=== PATIENT | male | born 1960 | race Caucasian/White ===

== ENCOUNTER 2021-06-20 17:56 | Inpatient (IN) ==
[2021-06-20 19:46] LABS: Basophils # 0.1 K/mcL (0.0-0.2); Basophils % 1.2 %; Eosinophils # 0.5 K/mcL (0.0-0.6); Eosinophils % 4.7 %; Hematocrit 44.4 % (37.5-50.1); Immature Granulocytes % 0.2 % (0-4); Lymphocytes # 3.6 K/mcL (0.6-4.6); Lymphocytes % 34.6 %; Mean Corpuscular HGB Conc 33.8 g/dL (31.6-35.5); Mean Corpuscular Hemoglobin 31.9 pg (28.0-33.3); Mean Corpuscular Volume 94.5 fL (83.0-100.0); Mean Platelet Volume 10.7 fL (9.4-12.4); Monocytes # 0.9 K/mcL (0.0-1.3); Monocytes % 8.7 %; Neutrophils # 5.2 K/mcL (1.6-8.9); Platelet Count 310 K/mcL (140-400); Red Cell Distribution Width 14.7 % (11.5-14.5); Segmented Neutrophils % 50.6 %; White Blood Count 10.4 K/mcL (4.3-11.1)
[2021-06-20 20:05] LABS: Bilirubin,Urine Negative (Negative); Blood,Urine Negative (Negative); Clarity,Urine Clear (Clear); Color,Urine Light-Yellow (Yellow); Glucose,Urine (UA) Normal (Normal); Ketones,Urine Negative (Negative); Leukocyte Esterase,Urine Negative (Negative); Nitrite,Urine Negative (Negative); Protein,Urine Trace mg/dL (Neg-Trace); Specific Gravity,Urine 1.015 (1.010-1.025); Urobilinogen,Urine Normal (Normal)
[2021-06-20] MEDS ORDERED: amLODIPine 5 MG TABLET PO STA (20:09)
[2021-06-20 20:10] LABS: Amphetamine Screen,Urine Negative ng/mL (Cutoff=1000); Barbiturate Screen,Urine Negative ng/mL (Cutoff=200); Benzodiazepines Screen,Urine Negative ng/mL (Cutoff=200); Cannabinoid Screen,Urine Negative ng/mL (Cutoff = 50); Cocaine Screen,Urine Negative ng/mL (Cutoff= 300); Opiate Screen,Urine Negative ng/mL (Cutoff=300); Phencyclidine Screen,Urine Negative ng/mL (Cutoff=25)
[2021-06-20] MEDS ORDERED: hydrALAZINE 25 MG TABLET PO ONE (20:10)
[2021-06-20 20:11] LABS: Alanine Aminotransferase 7 Units/L (7-52); Albumin 3.7 g/dL (3.5-5.7); Albumin/Globulin Ratio 1.2 (1.1-2.2); Alkaline Phosphatase 89 Units/L (34-104); Aspartate Amino Transferase 11 Units/L (13-39); BUN/Creatinine Ratio 15 (6-26); Bilirubin,Direct 0.1 mg/dL (0.0-0.2); Bilirubin,Indirect 0.4 mg/dL (0.0-1.0); Bilirubin,Total 0.5 mg/dL (0.3-1.0); Blood Urea Nitrogen 13 mg/dL (8-23); Calcium 9.5 mg/dL (8.6-10.3); Carbon Dioxide 25 mEq/L (23-29); Chloride 107 mEq/L (98-107); Globulin 3.1 g/dL (2.4-3.5); Glucose 90 mg/dL (70-105); Osmolality,Calculated 290 (280-300); Potassium 3.4 mEq/L (3.5-5.1); Sodium 140 mEq/L (136-145); Total Protein 6.8 g/dL (6.4-8.9); eGFR For African Americans > 60 (> 60); eGFR For Non-African Americans > 60 (> 60)
[2021-06-20 20:12] LABS: Acetaminophen < 10 mcg/mL (10-20); Ethanol < 10 mg/dL (Less than 10); Salicylate < 2.5 mg/dL (15.0-30.0)
[2021-06-20 22:00] LABS: Influenza A PCR Negative (Negative); Influenza B PCR Negative (Negative); Resp. Syncytial Virus PCR Negative (Negative); SARS-CoV-2 by PCR (In House) Negative (Negative)
[2021-06-20] MEDS ORDERED: *HR* Labetalol 20 MG/4 ML SYRINGE IVP ONE (23:20)
[2021-06-21] MEDS ORDERED: Acetaminophen 325 MG TABLET PO PRN (00:37)
[2021-06-21] MEDS ORDERED: Melatonin 3 MG TABLET PO PRN (00:37)
[2021-06-21] MEDS ORDERED: *HR* HYDROcodone/Acet 5/325 mg TABLET PO PRN (00:37)
[2021-06-21] MEDS ORDERED: Naloxone 0.4 MG/ML INJ IVP PRN (00:37)
[2021-06-21] MEDS ORDERED: *HR* Promethazine 25 MG/ML VIAL IM PRN (00:37)
[2021-06-21] MEDS ORDERED: Perflutren Lipid Microsphere 1.3 ML in 0.9 % Sodium Chloride 8.7 ML IVP PRN (00:38)
[2021-06-21] MEDS ORDERED: *HR* LORazepam 0.5 MG TABLET PO ONE (01:19)
[2021-06-21] MEDS: *HR* Enoxaparin 40 MG/0.4 ML SYRINGE SQ SCH (05:13)
[2021-06-21 06:03] LABS: Hematocrit 49.4 % (37.5-50.1); Mean Corpuscular HGB Conc 33.6 g/dL (31.6-35.5); Mean Corpuscular Volume 95.4 fL (83.0-100.0); Mean Platelet Volume 10.3 fL (9.4-12.4); Platelet Count 340 K/mcL (140-400); Red Blood Count 5.18 M/mcL (4.19-5.50); Red Cell Distribution Width 14.7 % (11.5-14.5); White Blood Count 9.8 K/mcL (4.3-11.1)
[2021-06-21 06:06] LABS: Hemoglobin 16.6 g/dL (12.9-16.9)
[2021-06-21 06:12] LABS: Prothrombin Time 11.4 Seconds (9.4-12.1)
[2021-06-21 06:30] LABS: VBG HCO3 24 mEq/L (21-27); VBG PCO2 33 mmHg (41-51); VBG PH 7.47 pH Units (7.32-7.42); VBG PO2 112 mmHg (25-50)
[2021-06-21] MEDS: Metoprolol XL (24 HR) Succ 25 MG TAB.ER.24H PO SCH (08:29)
[2021-06-21] MEDS: Aspirin 81 MG TAB.CHEW PO SCH (08:29)
[2021-06-21] MEDS: NIFEdipine XL (24 HR) 60 MG TAB.ER.24 PO SCH (08:29)
[2021-06-21] MEDS: Nicotine 21 MG PATCH.TD24 TD SCH (08:30)
[2021-06-21] MEDS: lisinopriL 10 MG TABLET PO SCH (08:30)
[2021-06-21 08:39] LABS: BUN/Creatinine Ratio 13 (6-26); Blood Urea Nitrogen 12 mg/dL (8-23); Carbon Dioxide 23 mEq/L (23-29); Chloride 107 mEq/L (98-107); Chol/HDL Ratio 3.7 (0-4.9); Cholesterol 196 mg/dL (< 200); Glucose 102 mg/dL (70-105); HDL Cholesterol 53 mg/dL (40-59); LDL Cholesterol,Calculated 124 mg/dL (< 100); Magnesium 1.9 mg/dL (1.6-2.6); Osmolality,Calculated 290 (280-300); Phosphorous 2.9 mg/dL (2.7-4.5); Sodium 140 mEq/L (136-145); Triglycerides 94 mg/dL (< 150); eGFR For African Americans > 60 (> 60); eGFR For Non-African Americans > 60 (> 60)
[2021-06-21 08:42] LABS: Thyroid Stimulating Hormone 3.431 mcIU/mL (0.340-5.600)
[2021-06-21 09:49] LABS: Estimated Average Glucose 114 mg/dl; Hemoglobin A1C 5.6 %
[2021-06-21 11:10] LABS: Folate 5.4 ng/mL (3.0-16.0)
[2021-06-21] MEDS ORDERED: Isovue-370 500 ML BOTTLE IVP ONE ×2 (14:45)
[2021-06-21] MEDS: OLANZapine 5 MG TAB.RAPDIS PO SCH (20:49)
[2021-06-22] MEDS: *HR* Enoxaparin 40 MG/0.4 ML SYRINGE SQ SCH (05:01)
[2021-06-22] MEDS ORDERED: Haloperidol Lactate 5 MG/ML VIAL IVP ONE (09:00)
[2021-06-22] MEDS: Aspirin 81 MG TAB.CHEW PO SCH (09:12)
[2021-06-22] MEDS: Cyanocobalamin (B-12) 1,000 MCG TABLET PO SCH (09:12)
[2021-06-22] MEDS: lisinopriL 10 MG TABLET PO SCH (09:12)
[2021-06-22] MEDS: Nicotine 21 MG PATCH.TD24 TD SCH (09:12)
[2021-06-22] MEDS: NIFEdipine XL (24 HR) 60 MG TAB.ER.24 PO SCH (09:12)
[2021-06-22] MEDS: Metoprolol XL (24 HR) Succ 25 MG TAB.ER.24H PO SCH (09:12)
[2021-06-22] MEDS: OLANZapine 5 MG TAB.RAPDIS PO SCH (23:21)
[2021-06-23] MEDS: *HR* Enoxaparin 40 MG/0.4 ML SYRINGE SQ SCH (06:54)
[2021-06-23] MEDS: Aspirin 81 MG TAB.CHEW PO SCH (09:50)
[2021-06-23] MEDS: NIFEdipine XL (24 HR) 60 MG TAB.ER.24 PO SCH (09:50)
[2021-06-23] MEDS: Nicotine 21 MG PATCH.TD24 TD SCH (09:50)
[2021-06-23] MEDS: Cyanocobalamin (B-12) 1,000 MCG TABLET PO SCH (09:50)
[2021-06-23] MEDS: Metoprolol XL (24 HR) Succ 25 MG TAB.ER.24H PO SCH (09:50)
[2021-06-23] MEDS: lisinopriL 10 MG TABLET PO SCH (09:50)
[2021-06-23] MEDS: OLANZapine 5 MG TAB.RAPDIS PO SCH (20:54)
[2021-06-24] MEDS: *HR* Enoxaparin 40 MG/0.4 ML SYRINGE SQ SCH (06:28)
[2021-06-24] MEDS: Nicotine 21 MG PATCH.TD24 TD SCH (09:06)
[2021-06-24] MEDS: lisinopriL 10 MG TABLET PO SCH (09:06)
[2021-06-24] MEDS: Cyanocobalamin (B-12) 1,000 MCG TABLET PO SCH (09:06)
[2021-06-24] MEDS: Aspirin 81 MG TAB.CHEW PO SCH (09:06)
[2021-06-24] MEDS: Metoprolol XL (24 HR) Succ 25 MG TAB.ER.24H PO SCH (09:06)
[2021-06-24] MEDS: NIFEdipine XL (24 HR) 60 MG TAB.ER.24 PO SCH (09:07)
[2021-06-24] MEDS: OLANZapine 5 MG TAB.RAPDIS PO SCH (21:50)
[2021-06-25] MEDS: *HR* Enoxaparin 40 MG/0.4 ML SYRINGE SQ SCH (07:10)
[2021-06-25] MEDS: Nicotine 21 MG PATCH.TD24 TD SCH (09:34)
[2021-06-25] MEDS: Cyanocobalamin (B-12) 1,000 MCG TABLET PO SCH (09:34)
[2021-06-25] MEDS: Aspirin 81 MG TAB.CHEW PO SCH (09:34)
[2021-06-25] MEDS: Metoprolol XL (24 HR) Succ 25 MG TAB.ER.24H PO SCH (09:35)
[2021-06-25] MEDS: NIFEdipine XL (24 HR) 60 MG TAB.ER.24 PO SCH (09:35)
[2021-06-25] MEDS: lisinopriL 10 MG TABLET PO SCH (09:35)
[2021-06-25] MEDS: OLANZapine 5 MG TAB.RAPDIS PO SCH (19:46)
[2021-06-26] MEDS: *HR* Enoxaparin 40 MG/0.4 ML SYRINGE SQ SCH (05:54)
[2021-06-26] MEDS: Cyanocobalamin (B-12) 1,000 MCG TABLET PO SCH (10:20)
[2021-06-26] MEDS: Metoprolol XL (24 HR) Succ 25 MG TAB.ER.24H PO SCH (10:20)
[2021-06-26] MEDS: lisinopriL 10 MG TABLET PO SCH (10:20)
[2021-06-26] MEDS: NIFEdipine XL (24 HR) 60 MG TAB.ER.24 PO SCH (10:20)
[2021-06-26] MEDS: Aspirin 81 MG TAB.CHEW PO SCH (10:20)
[2021-06-26] MEDS: Nicotine 21 MG PATCH.TD24 TD SCH (10:21)
[2021-06-26] MEDS ORDERED: *HR* Heparin 5,000 UNIT/ML VIAL IVP ONE (11:11)
[2021-06-26] MEDS ORDERED: *HR* Heparin 5,000 UNIT/ML VIAL IVP PRN (11:11)
[2021-06-26] MEDS ORDERED: *HR* Etomidate 40 MG/20 ML VIAL IVP ONE (11:58)
[2021-06-26] MEDS ORDERED: Lidocaine -MPF 2% 5 ML VIAL ONE (11:58)
[2021-06-26] MEDS ORDERED: Ondansetron 4 MG/2 ML VIAL ONE (11:58)
[2021-06-26] MEDS ORDERED: *HR* FentaNYL (PF) 100 MCG/2 ML VIAL ONE (11:59)
[2021-06-26] MEDS ORDERED: *HR* Midazolam HCl 2 MG/2 ML VIAL ONE (11:59)
[2021-06-26] MEDS ORDERED: *HR* Propofol 200 MG/20 ML VIAL IVP ONE (11:59)
[2021-06-26 12:04] LABS: Heparin anti-factor XA UFH < 0.04 IU/mL (0.30-0.70); INR 1.1; Prothrombin Time 12.2 Seconds (9.4-12.1)
[2021-06-26] MEDS ORDERED: CeFAZolin Syr 2,000MG/20 ML 2,000 MG/20 ML SYRINGE IVPB ONE (12:10)
[2021-06-26] MEDS ORDERED: Naloxone 0.4 MG/ML INJ IVP PRN (12:32)
[2021-06-26] MEDS ORDERED: *HR* FentaNYL (PF) 100 MCG/2 ML VIAL IVP PRN (12:32)
[2021-06-26] MEDS ORDERED: *HR* Metoprolol 5 MG/5 ML VIAL IVP PRN (12:32)
[2021-06-26] MEDS ORDERED: Nitroglycerin 0.4 MG TAB.SUBL SL PRN (12:32)
[2021-06-26] MEDS ORDERED: Albuterol 2.5 MG/3 ML NEBULIZER IH PRN (12:32)
[2021-06-26] MEDS: Heparin 25,000UNIT/250ML 1/2NS 25,000 UNIT/250 ML IV.SOLN IVC SCH (14:24)
[2021-06-26 15:09] LABS: Hematocrit 43.3 % (37.5-50.1); Hemoglobin 14.6 g/dL (12.9-16.9); Mean Corpuscular HGB Conc 33.7 g/dL (31.6-35.5); Mean Platelet Volume 10.6 fL (9.4-12.4); Platelet Count 342 K/mcL (140-400); Red Blood Count 4.56 M/mcL (4.19-5.50); Red Cell Distribution Width 14.2 % (11.5-14.5); White Blood Count 13.1 K/mcL (4.3-11.1)
[2021-06-26] MEDS: OLANZapine 5 MG TAB.RAPDIS PO SCH (20:30)
[2021-06-26] MEDS: *HR* Heparin 5,000 UNIT/ML VIAL IVP PRN (21:52)
[2021-06-27 04:32] LABS: Basophils % 0.1 %; Hematocrit 41.8 % (37.5-50.1); Hemoglobin 13.8 g/dL (12.9-16.9); Immature Granulocytes % 0.5 % (0-4); Lymphocytes # 0.9 K/mcL (0.6-4.6); Lymphocytes % 6.3 %; Mean Corpuscular Hemoglobin 31.4 pg (28.0-33.3); Monocytes # 1.2 K/mcL (0.0-1.3); Monocytes % 8.4 %; Platelet Count 358 K/mcL (140-400); Segmented Neutrophils % 84.7 %; White Blood Count 14.2 K/mcL (4.3-11.1)
[2021-06-27 04:50] LABS: Calcium 8.9 mg/dL (8.6-10.3); Potassium 3.5 mEq/L (3.5-5.1)
[2021-06-27] MEDS ORDERED: 0.9 % Sodium Chloride 250 ML IVC ONE (08:37)
[2021-06-27] MEDS: lisinopriL 10 MG TABLET PO SCH (09:51)
[2021-06-27] MEDS: Metoprolol XL (24 HR) Succ 25 MG TAB.ER.24H PO SCH (09:51)
[2021-06-27] MEDS: Cyanocobalamin (B-12) 1,000 MCG TABLET PO SCH (09:51)
[2021-06-27] MEDS: Aspirin 81 MG TAB.CHEW PO SCH (09:52)
[2021-06-27] MEDS: NIFEdipine XL (24 HR) 60 MG TAB.ER.24 PO SCH (09:52)
[2021-06-27] MEDS: Nicotine 21 MG PATCH.TD24 TD SCH (09:52)
[2021-06-27] MEDS: Heparin 25,000UNIT/250ML 1/2NS 25,000 UNIT/250 ML IV.SOLN IVC SCH (13:21)
[2021-06-27] MEDS ORDERED: 0.9 % Sodium Chloride 1,000 ML IVC SCH (14:30)
[2021-06-27] MEDS: *HR* Heparin 5,000 UNIT/ML VIAL IVP PRN (16:58)
[2021-06-27] MEDS: OLANZapine 5 MG TAB.RAPDIS PO SCH (22:06)
[2021-06-28 03:02] LABS: Basophils # 0.1 K/mcL (0.0-0.2); Basophils % 0.5 %; Eosinophils # 0.2 K/mcL (0.0-0.6); Eosinophils % 1.1 %; Hematocrit 40.2 % (37.5-50.1); Hemoglobin 13.5 g/dL (12.9-16.9); Immature Granulocytes % 0.5 % (0-4); Lymphocytes # 2.9 K/mcL (0.6-4.6); Lymphocytes % 19.4 %; Mean Corpuscular HGB Conc 33.6 g/dL (31.6-35.5); Mean Corpuscular Hemoglobin 31.9 pg (28.0-33.3); Mean Platelet Volume 11.4 fL (9.4-12.4); Monocytes # 1.6 K/mcL (0.0-1.3); Monocytes % 10.8 %; Platelet Count 336 K/mcL (140-400); Red Blood Count 4.23 M/mcL (4.19-5.50); Red Cell Distribution Width 14.2 % (11.5-14.5); Segmented Neutrophils % 67.7 %; White Blood Count 14.8 K/mcL (4.3-11.1)
[2021-06-28 03:21] LABS: Calcium 8.5 mg/dL (8.6-10.3); Potassium 3.1 mEq/L (3.5-5.1)
[2021-06-28] MEDS ORDERED: Potassium Chloride 40 MEQ, Lidocaine 1% 2 ML in 0.9 % Sodium Chloride 500 ML IVPB ONE (07:40)
[2021-06-28] MEDS: Aspirin 81 MG TAB.CHEW PO SCH (08:39)
[2021-06-28] MEDS: hydrALAZINE 25 MG TABLET PO SCH (08:39)
[2021-06-28] MEDS: NIFEdipine XL (24 HR) 60 MG TAB.ER.24 PO SCH (08:39)
[2021-06-28] MEDS: Cyanocobalamin (B-12) 1,000 MCG TABLET PO SCH (08:39)
[2021-06-28] MEDS: Nicotine 21 MG PATCH.TD24 TD SCH (08:45)
[2021-06-28] MEDS ORDERED: 0.9 % Sodium Chloride 1,000 ML IVC SCH (09:00)
[2021-06-28 13:51] LABS: Sodium, Urine 82.5 mEq/L
[2021-06-28 14:02] LABS: Amorphous Sediment,Urine Few per hpf (None-Few); Bacteria,Urine Few per hpf (None-Few); Bilirubin,Urine Negative (Negative); Blood,Urine Large (Negative); Clarity,Urine Turbid (Clear); Color,Urine Colorless (Yellow); Glucose,Urine (UA) Normal (Normal); Ketones,Urine Negative (Negative); Leukocyte Esterase,Urine Trace (Negative); Mucus,Urine Few per lpf (None-Few); Nitrite,Urine Negative (Negative); PH,Urine 5.5 pH Units (5.0-8.0); Protein,Urine Negative (Neg-Trace); RBC,Urine TNTC per hpf (0-3); Specific Gravity,Urine 1.011 (1.010-1.025); Squamous Epithelial Cell,Urine Few per hpf (None-Few); Transitional Epi Cells,Urine Few per hpf (None-Few); Urobilinogen,Urine Normal (Normal); WBC,Urine 15-30 per hpf (0-3)
[2021-06-28] MEDS: OLANZapine 5 MG TAB.RAPDIS PO SCH (20:22)
[2021-06-28] MEDS: *HR* Heparin 5,000 UNIT/ML VIAL SQ SCH (20:23)
[2021-06-29 02:25] LABS: Basophils # 0.1 K/mcL (0.0-0.2); Basophils % 0.6 %; Eosinophils # 0.3 K/mcL (0.0-0.6); Eosinophils % 2.6 %; Hemoglobin 13.1 g/dL (12.9-16.9); Immature Granulocytes % 0.6 % (0-4); Lymphocytes # 2.8 K/mcL (0.6-4.6); Lymphocytes % 22.5 %; Mean Corpuscular HGB Conc 33.6 g/dL (31.6-35.5); Mean Corpuscular Hemoglobin 31.7 pg (28.0-33.3); Mean Corpuscular Volume 94.4 fL (83.0-100.0); Mean Platelet Volume 10.5 fL (9.4-12.4); Monocytes # 1.5 K/mcL (0.0-1.3); Monocytes % 11.9 %; Neutrophils # 7.8 K/mcL (1.6-8.9); Platelet Count 366 K/mcL (140-400); Red Blood Count 4.13 M/mcL (4.19-5.50); Red Cell Distribution Width 13.8 % (11.5-14.5); Segmented Neutrophils % 61.8 %; White Blood Count 12.6 K/mcL (4.3-11.1)
[2021-06-29 02:47] LABS: Calcium 8.7 mg/dL (8.6-10.3); Potassium 3.3 mEq/L (3.5-5.1)
[2021-06-29] MEDS: *HR* Heparin 5,000 UNIT/ML VIAL SQ SCH ×2 (06:57→17:41)
[2021-06-29] MEDS: Nicotine 21 MG PATCH.TD24 TD SCH (08:51)
[2021-06-29] MEDS: hydrALAZINE 25 MG TABLET PO SCH (08:51)
[2021-06-29] MEDS: Metoprolol XL (24 HR) Succ 25 MG TAB.ER.24H PO SCH (08:51)
[2021-06-29] MEDS: Aspirin 81 MG TAB.CHEW PO SCH (08:51)
[2021-06-29] MEDS: Cyanocobalamin (B-12) 1,000 MCG TABLET PO SCH (08:51)
[2021-06-29] MEDS: NIFEdipine XL (24 HR) 60 MG TAB.ER.24 PO SCH (08:51)
[2021-06-29] MEDS: Cefdinir 300 MG CAPSULE PO SCH ×2 (10:40→21:03)
[2021-06-29] MEDS ORDERED: 0.9 % Sodium Chloride 1,000 ML IVC SCH (11:45)
[2021-06-29] MEDS: OLANZapine 5 MG TAB.RAPDIS PO SCH (21:03)
[2021-06-30] MEDS: *HR* Heparin 5,000 UNIT/ML VIAL SQ SCH ×2 (04:27→18:02)
[2021-06-30 05:10] LABS: Basophils # 0.1 K/mcL (0.0-0.2); Basophils % 0.6 %; Eosinophils # 0.4 K/mcL (0.0-0.6); Eosinophils % 3.2 %; Hematocrit 38.2 % (37.5-50.1); Hemoglobin 12.7 g/dL (12.9-16.9); Immature Granulocytes % 0.5 % (0-4); Lymphocytes # 2.1 K/mcL (0.6-4.6); Lymphocytes % 16.4 %; Mean Corpuscular HGB Conc 33.2 g/dL (31.6-35.5); Mean Corpuscular Hemoglobin 31.5 pg (28.0-33.3); Mean Corpuscular Volume 94.8 fL (83.0-100.0); Mean Platelet Volume 10.9 fL (9.4-12.4); Monocytes # 1.4 K/mcL (0.0-1.3); Monocytes % 11.3 %; Neutrophils # 8.6 K/mcL (1.6-8.9); Platelet Count 363 K/mcL (140-400); Red Blood Count 4.03 M/mcL (4.19-5.50); Red Cell Distribution Width 13.6 % (11.5-14.5); White Blood Count 12.6 K/mcL (4.3-11.1)
[2021-06-30 05:26] LABS: Calcium 8.5 mg/dL (8.6-10.3); Magnesium 1.6 mg/dL (1.6-2.6); Phosphorous 5.3 mg/dL (2.7-4.5); Potassium 3.1 mEq/L (3.5-5.1)
[2021-06-30] MEDS: Cyanocobalamin (B-12) 1,000 MCG TABLET PO SCH (08:08)
[2021-06-30] MEDS: Aspirin 81 MG TAB.CHEW PO SCH (08:08)
[2021-06-30] MEDS: Cefdinir 300 MG CAPSULE PO SCH ×2 (08:08→20:22)
[2021-06-30] MEDS: Nicotine 21 MG PATCH.TD24 TD SCH (08:08)
[2021-06-30] MEDS: hydrALAZINE 25 MG TABLET PO SCH (08:08)
[2021-06-30] MEDS: Metoprolol XL (24 HR) Succ 25 MG TAB.ER.24H PO SCH (08:09)
[2021-06-30] MEDS: NIFEdipine XL (24 HR) 60 MG TAB.ER.24 PO SCH (08:09)
[2021-06-30] MEDS ORDERED: 0.9 % Sodium Chloride 1,000 ML IVC SCH (08:30)
[2021-06-30] MEDS ORDERED: Naloxone 0.4 MG/ML INJ IVP PRN ×2 (11:37)
[2021-06-30] MEDS ORDERED: Acetaminophen 325 MG TABLET PO PRN (11:37)
[2021-06-30] MEDS ORDERED: Melatonin 3 MG TABLET PO PRN (11:37)
[2021-06-30] MEDS ORDERED: Perflutren Lipid Microsphere 1.3 ML in 0.9 % Sodium Chloride 8.7 ML IVP PRN (11:37)
[2021-06-30] MEDS ORDERED: *HR* HYDROcodone/Acet 5/325 mg TABLET PO PRN (11:37)
[2021-06-30] MEDS ORDERED: Nitroglycerin 0.4 MG TAB.SUBL SL PRN (11:37)
[2021-06-30] MEDS ORDERED: *HR* Promethazine 25 MG/ML VIAL IM PRN (11:37)
[2021-06-30] MEDS ORDERED: *HR* Metoprolol 5 MG/5 ML VIAL IVP PRN (11:37)
[2021-06-30 11:47] LABS: Complement C3 108 mg/dL (87-200)
[2021-06-30] MEDS: OLANZapine 5 MG TAB.RAPDIS PO SCH (20:22)
[2021-07-01] MEDS: *HR* Heparin 5,000 UNIT/ML VIAL SQ SCH ×2 (05:49→17:10)
[2021-07-01 05:53] LABS: Hematocrit 39.3 % (37.5-50.1); Hemoglobin 12.9 g/dL (12.9-16.9); Mean Corpuscular HGB Conc 32.8 g/dL (31.6-35.5); Mean Corpuscular Hemoglobin 31.2 pg (28.0-33.3); Mean Corpuscular Volume 94.9 fL (83.0-100.0); Mean Platelet Volume 10.7 fL (9.4-12.4); Platelet Count 403 K/mcL (140-400); Red Blood Count 4.14 M/mcL (4.19-5.50); Red Cell Distribution Width 13.5 % (11.5-14.5); White Blood Count 11.1 K/mcL (4.3-11.1)
[2021-07-01 06:09] LABS: Calcium 8.9 mg/dL (8.6-10.3); Potassium 3.7 mEq/L (3.5-5.1)
[2021-07-01] MEDS: NIFEdipine XL (24 HR) 60 MG TAB.ER.24 PO SCH (08:53)
[2021-07-01] MEDS: hydrALAZINE 25 MG TABLET PO SCH (08:53)
[2021-07-01] MEDS: Metoprolol XL (24 HR) Succ 25 MG TAB.ER.24H PO SCH (08:53)
[2021-07-01] MEDS: Aspirin 81 MG TAB.CHEW PO SCH (08:53)
[2021-07-01] MEDS: Nicotine 21 MG PATCH.TD24 TD SCH (08:54)
[2021-07-01] MEDS: Cyanocobalamin (B-12) 1,000 MCG TABLET PO SCH (08:54)
[2021-07-01] MEDS: Cefdinir 300 MG CAPSULE PO SCH ×2 (09:55→19:59)
[2021-07-01] MEDS: OLANZapine 5 MG TAB.RAPDIS PO SCH (19:59)
[2021-07-01 22:33] LABS: Lambda Qnt Free Light Chains 45.86 mg/L (5.71-26.30)
[2021-07-02 00:02] VITALS: O2SAT 93
[2021-07-02 05:16] VITALS: BP 106/67; PULSE 78; TEMP 97.7
[2021-07-02] MEDS: *HR* Heparin 5,000 UNIT/ML VIAL SQ SCH (05:16)
[2021-07-02 05:31] LABS: Hematocrit 38.8 % (37.5-50.1); Hemoglobin 13.4 g/dL (12.9-16.9); Mean Corpuscular HGB Conc 34.5 g/dL (31.6-35.5); Mean Corpuscular Hemoglobin 32.8 pg (28.0-33.3); Mean Corpuscular Volume 94.9 fL (83.0-100.0); Mean Platelet Volume 10.2 fL (9.4-12.4); Platelet Count 436 K/mcL (140-400); Red Blood Count 4.09 M/mcL (4.19-5.50); Red Cell Distribution Width 13.6 % (11.5-14.5); White Blood Count 14.3 K/mcL (4.3-11.1)
[2021-07-02 05:51] LABS: BUN/Creatinine Ratio 26 (6-26); Blood Urea Nitrogen 32 mg/dL (8-23); Calcium 9.1 mg/dL (8.6-10.3); Carbon Dioxide 28 mEq/L (23-29); Chloride 107 mEq/L (98-107); Glucose 123 mg/dL (70-105); Osmolality,Calculated 302 (280-300); Potassium 3.6 mEq/L (3.5-5.1); Sodium 142 mEq/L (136-145); eGFR For African Americans > 60 (> 60); eGFR For Non-African Americans 59 (> 60)
[2021-07-02 07:53] LABS: Kappa Qnt Free Light Chains 52.08 mg/L (3.30-19.40)
[2021-07-02] MEDS: Aspirin 81 MG TAB.CHEW PO SCH (08:49)
[2021-07-02] MEDS: Nicotine 21 MG PATCH.TD24 TD SCH (08:49)
[2021-07-02] MEDS: NIFEdipine XL (24 HR) 60 MG TAB.ER.24 PO SCH (08:49)
[2021-07-02] MEDS: Metoprolol XL (24 HR) Succ 25 MG TAB.ER.24H PO SCH (08:49)
[2021-07-02] MEDS: hydrALAZINE 25 MG TABLET PO SCH (08:49)
[2021-07-02] MEDS: Cefdinir 300 MG CAPSULE PO SCH (08:49)
[2021-07-02] MEDS: Cyanocobalamin (B-12) 1,000 MCG TABLET PO SCH (08:50)
[2021-07-03 10:25] LABS: ANA IgG by ELISA NONE DETECTED (None Detected)
[2021-07-04 08:39] LABS: Beta Globulin (PEP) 0.69 g/dL (0.48-1.10)
[2021-07-04 10:44] LABS: Immunoglobulin G 987 mg/dL (768-1632); Immunoglobulin M 319 mg/dL (35-263)
[2021-07-04 10:45] LABS: IFE Reflexed IFE Done; Immunoglobulin A 218 mg/dL (68-408)
[2021-07-06 20:28] LABS: ANCA IFA Titer <1:20 (<1:20)
[2021-07-07 12:12] LABS: ANCA IFA Pattern NONE DETECTED (None Detected); Serine Protease-3 Antibody 6 AU/mL (0-19)
== END 2021-07-02 16:02 | disposition home health service (06) | DRG 281 ==
LOC: EMEROOARM 17:56 → 3NENU 17:56 → SUATTDRO 23:53 → 3NENU 06-21 00:56 → SUATTDRO 06-22 20:57 → 3BNU 06-27 13:59
PROVIDERS: ADMIT Family Medicine; ATTEND Family Medicine

== ENCOUNTER 2021-09-12 14:15 | Inpatient (IN) ==
[2021-09-12] MEDS ORDERED: Famotidine 20 MG/2 ML VIAL IVP ONE (15:13)
[2021-09-12] MEDS ORDERED: Acetaminophen IV 1,000 MG/100 ML BAG IVPB ONE (15:13)
[2021-09-12] MEDS ORDERED: levoFLOXacin 500 MG/100 ML 500 MG/100 ML BAG IVPB ONE (15:59)
[2021-09-12] MEDS ORDERED: Ringers Solution, Lactated 1,000 ML IVC SCH (16:00)
[2021-09-12] MEDS ORDERED: *HR* Midazolam HCl 2 MG/2 ML VIAL ONE (16:15)
[2021-09-12] MEDS ORDERED: *HR* FentaNYL (PF) 100 MCG/2 ML VIAL ONE (16:15)
[2021-09-12] MEDS ORDERED: *HR* Propofol 200 MG/20 ML VIAL IVP ONE ×2 (16:15→17:21)
[2021-09-12] MEDS ORDERED: Lidocaine -MPF 2% 2 ML VIAL ONE (16:15)
[2021-09-12] MEDS ORDERED: EPHEDrine 50 MG/ML VIAL ONE (17:28)
[2021-09-12] MEDS ORDERED: *HR* HYDROmorphone PF 0.5 MG/0.5 ML SYRINGE IVP PRN (17:44)
[2021-09-12] MEDS ORDERED: Ondansetron 4 MG/2 ML VIAL IVP PRN ×2 (17:44→19:29)
[2021-09-12] MEDS ORDERED: EPINEPHrine 1 MG/ML VIAL ONE (18:04)
[2021-09-12] MEDS ORDERED: Naloxone 0.4 MG/ML INJ IVP PRN (19:29)
[2021-09-12] MEDS ORDERED: Acetaminophen 325 MG TABLET PO PRN (19:29)
[2021-09-12] MEDS ORDERED: *HR* OxyCODONE Immed Rel 5 MG TABLET PO PRN (19:29)
[2021-09-12] MEDS ORDERED: Nicotine 21 MG PATCH.TD24 TD PRN (19:29)
[2021-09-12] MEDS ORDERED: *HR* OxyCODONE/APAP 5/325 TABLET PO PRN (19:29)
[2021-09-12] MEDS: 0.9 % Sodium Chloride 1,000 ML IVC SCH (20:19)
[2021-09-12] MEDS: OLANZapine 5 MG TAB.RAPDIS PO SCH (20:38)
[2021-09-13] MEDS: 0.9 % Sodium Chloride 1,000 ML IVC SCH ×2 (03:58→14:35)
[2021-09-13] MEDS: hydrALAZINE 25 MG TABLET PO SCH (07:54)
[2021-09-13] MEDS: Metoprolol XL (24 HR) Succ 25 MG TAB.ER.24H PO SCH (07:54)
[2021-09-13] MEDS: NIFEdipine XL (24 HR) 60 MG TAB.ER.24 PO SCH (07:54)
[2021-09-13] MEDS: levoFLOXacin 500 MG TABLET PO SCH (14:35)
[2021-09-13] MEDS ORDERED: levoFLOXacin 500 MG/100 ML 500 MG/100 ML BAG IVPB SCH (19:00)
[2021-09-13] MEDS: OLANZapine 5 MG TAB.RAPDIS PO SCH (22:37)
[2021-09-14] MEDS: Metoprolol XL (24 HR) Succ 25 MG TAB.ER.24H PO SCH (08:31)
[2021-09-14] MEDS: hydrALAZINE 25 MG TABLET PO SCH (08:31)
[2021-09-14] MEDS: NIFEdipine XL (24 HR) 60 MG TAB.ER.24 PO SCH (08:31)
[2021-09-14] MEDS: levoFLOXacin 500 MG TABLET PO SCH (08:31)
[2021-09-14] MEDS: OLANZapine 5 MG TAB.RAPDIS PO SCH (19:47)
[2021-09-15] MEDS: NIFEdipine XL (24 HR) 60 MG TAB.ER.24 PO SCH (08:24)
[2021-09-15] MEDS: hydrALAZINE 25 MG TABLET PO SCH (08:25)
[2021-09-15] MEDS: Metoprolol XL (24 HR) Succ 25 MG TAB.ER.24H PO SCH (08:25)
[2021-09-15] MEDS: levoFLOXacin 500 MG TABLET PO SCH (08:25)
[2021-09-15] MEDS: OLANZapine 5 MG TAB.RAPDIS PO SCH (20:01)
[2021-09-16] MEDS: levoFLOXacin 500 MG TABLET PO SCH (08:00)
[2021-09-16] MEDS: Metoprolol XL (24 HR) Succ 25 MG TAB.ER.24H PO SCH (08:00)
[2021-09-16] MEDS: NIFEdipine XL (24 HR) 60 MG TAB.ER.24 PO SCH (08:00)
[2021-09-16] MEDS: hydrALAZINE 25 MG TABLET PO SCH (08:00)
[2021-09-17] MEDS: OLANZapine 5 MG TAB.RAPDIS PO SCH ×2 (03:11→20:17)
[2021-09-17] MEDS: NIFEdipine XL (24 HR) 60 MG TAB.ER.24 PO SCH (09:09)
[2021-09-17] MEDS: Metoprolol XL (24 HR) Succ 25 MG TAB.ER.24H PO SCH (09:10)
[2021-09-17] MEDS: hydrALAZINE 25 MG TABLET PO SCH (09:10)
[2021-09-17] MEDS: levoFLOXacin 500 MG TABLET PO SCH (09:14)
[2021-09-17 15:14] LABS: Basophils # 0.1 K/mcL (0.0-0.2); Eosinophils # 0.7 K/mcL (0.0-0.6); Eosinophils % 6.6 %; Hematocrit 39.4 % (37.5-50.1); Hemoglobin 13.1 g/dL (12.9-16.9); Immature Granulocytes % 0.4 % (0-4); Lymphocytes # 2.5 K/mcL (0.6-4.6); Lymphocytes % 24.3 %; Mean Corpuscular HGB Conc 33.2 g/dL (31.6-35.5); Mean Corpuscular Hemoglobin 31.8 pg (28.0-33.3); Mean Corpuscular Volume 95.6 fL (83.0-100.0); Mean Platelet Volume 10.1 fL (9.4-12.4); Monocytes # 0.8 K/mcL (0.0-1.3); Monocytes % 8.2 %; Platelet Count 373 K/mcL (140-400); Red Blood Count 4.12 M/mcL (4.19-5.50); Red Cell Distribution Width 13.8 % (11.5-14.5); Segmented Neutrophils % 59.5 %; White Blood Count 10.1 K/mcL (4.3-11.1)
[2021-09-17 15:42] LABS: Alanine Aminotransferase 7 Units/L (7-52); Albumin 3.7 g/dL (3.5-5.7); Albumin/Globulin Ratio 1.3 (1.1-2.2); Alkaline Phosphatase 101 Units/L (34-104); Aspartate Amino Transferase 10 Units/L (13-39); BUN/Creatinine Ratio 22 (6-26); Bilirubin,Total 0.5 mg/dL (0.3-1.0); Blood Urea Nitrogen 24 mg/dL (8-23); Calcium 9.8 mg/dL (8.6-10.3); Carbon Dioxide 29 mEq/L (23-29); Chloride 108 mEq/L (98-107); Globulin 2.9 g/dL (2.4-3.5); Glucose 135 mg/dL (70-105); Osmolality,Calculated 302 (280-300); Potassium 3.8 mEq/L (3.5-5.1); Sodium 143 mEq/L (136-145); Total Protein 6.6 g/dL (6.4-8.9); eGFR For African Americans > 60 (> 60); eGFR For Non-African Americans > 60 (> 60)
[2021-09-18] MEDS: hydrALAZINE 25 MG TABLET PO SCH (09:27)
[2021-09-18] MEDS: levoFLOXacin 500 MG TABLET PO SCH (09:27)
[2021-09-18] MEDS: NIFEdipine XL (24 HR) 60 MG TAB.ER.24 PO SCH (09:27)
[2021-09-18] MEDS: Metoprolol XL (24 HR) Succ 25 MG TAB.ER.24H PO SCH (09:27)
[2021-09-18] MEDS: OLANZapine 5 MG TAB.RAPDIS PO SCH (22:24)
[2021-09-19] MEDS: Metoprolol XL (24 HR) Succ 25 MG TAB.ER.24H PO SCH (08:01)
[2021-09-19] MEDS: hydrALAZINE 25 MG TABLET PO SCH (08:01)
[2021-09-19] MEDS: NIFEdipine XL (24 HR) 60 MG TAB.ER.24 PO SCH (08:01)
[2021-09-19] MEDS: levoFLOXacin 500 MG TABLET PO SCH (08:01)
[2021-09-19] MEDS: OLANZapine 5 MG TAB.RAPDIS PO SCH (21:25)
[2021-09-20 04:42] LABS: Basophils # 0.1 K/mcL (0.0-0.2); Eosinophils # 0.9 K/mcL (0.0-0.6); Eosinophils % 8.7 %; Hematocrit 38.1 % (37.5-50.1); Hemoglobin 12.9 g/dL (12.9-16.9); Immature Granulocytes % 0.2 % (0-4); Lymphocytes # 3.3 K/mcL (0.6-4.6); Lymphocytes % 31.1 %; Mean Corpuscular HGB Conc 33.9 g/dL (31.6-35.5); Mean Corpuscular Hemoglobin 32.7 pg (28.0-33.3); Mean Corpuscular Volume 96.7 fL (83.0-100.0); Mean Platelet Volume 10.4 fL (9.4-12.4); Monocytes # 0.9 K/mcL (0.0-1.3); Monocytes % 8.8 %; Neutrophils # 5.3 K/mcL (1.6-8.9); Platelet Count 333 K/mcL (140-400); Red Blood Count 3.94 M/mcL (4.19-5.50); Red Cell Distribution Width 13.6 % (11.5-14.5); Segmented Neutrophils % 50.2 %; White Blood Count 10.6 K/mcL (4.3-11.1)
[2021-09-20 04:56] LABS: BUN/Creatinine Ratio 25 (6-26); Blood Urea Nitrogen 24 mg/dL (8-23); Calcium 9.4 mg/dL (8.6-10.3); Carbon Dioxide 27 mEq/L (23-29); Chloride 109 mEq/L (98-107); Glucose 95 mg/dL (70-105); Magnesium 1.7 mg/dL (1.6-2.6); Osmolality,Calculated 298 (280-300); Potassium 3.5 mEq/L (3.5-5.1); Sodium 142 mEq/L (136-145); eGFR For African Americans > 60 (> 60); eGFR For Non-African Americans > 60 (> 60)
[2021-09-20] MEDS: hydrALAZINE 25 MG TABLET PO SCH (07:55)
[2021-09-20] MEDS: Metoprolol XL (24 HR) Succ 25 MG TAB.ER.24H PO SCH (07:55)
[2021-09-20] MEDS: NIFEdipine XL (24 HR) 60 MG TAB.ER.24 PO SCH (07:55)
[2021-09-20] MEDS: OLANZapine 5 MG TAB.RAPDIS PO SCH (21:01)
[2021-09-21 05:26] LABS: Basophils # 0.1 K/mcL (0.0-0.2); Basophils % 1.2 %; Eosinophils # 0.7 K/mcL (0.0-0.6); Hematocrit 37.6 % (37.5-50.1); Hemoglobin 12.4 g/dL (12.9-16.9); Immature Granulocytes % 0.4 % (0-4); Lymphocytes # 3.3 K/mcL (0.6-4.6); Lymphocytes % 31.8 %; Mean Corpuscular Hemoglobin 31.8 pg (28.0-33.3); Mean Corpuscular Volume 96.4 fL (83.0-100.0); Mean Platelet Volume 10.6 fL (9.4-12.4); Monocytes # 0.9 K/mcL (0.0-1.3); Monocytes % 8.6 %; Neutrophils # 5.2 K/mcL (1.6-8.9); Platelet Count 329 K/mcL (140-400); Red Cell Distribution Width 13.8 % (11.5-14.5); White Blood Count 10.2 K/mcL (4.3-11.1)
[2021-09-21 05:47] LABS: BUN/Creatinine Ratio 25 (6-26); Blood Urea Nitrogen 28 mg/dL (8-23); Calcium 9.5 mg/dL (8.6-10.3); Carbon Dioxide 28 mEq/L (23-29); Chloride 109 mEq/L (98-107); Glucose 90 mg/dL (70-105); Magnesium 1.7 mg/dL (1.6-2.6); Osmolality,Calculated 301 (280-300); Potassium 3.6 mEq/L (3.5-5.1); Sodium 143 mEq/L (136-145); eGFR For African Americans > 60 (> 60); eGFR For Non-African Americans > 60 (> 60)
[2021-09-21] MEDS: hydrALAZINE 25 MG TABLET PO SCH (07:35)
[2021-09-21] MEDS: NIFEdipine XL (24 HR) 60 MG TAB.ER.24 PO SCH (07:36)
[2021-09-21] MEDS: Metoprolol XL (24 HR) Succ 25 MG TAB.ER.24H PO SCH (07:36)
[2021-09-21] MEDS: OLANZapine 5 MG TAB.RAPDIS PO SCH (20:25)
[2021-09-22] MEDS: hydrALAZINE 25 MG TABLET PO SCH (08:55)
[2021-09-22] MEDS: NIFEdipine XL (24 HR) 60 MG TAB.ER.24 PO SCH (08:55)
[2021-09-22] MEDS: Metoprolol XL (24 HR) Succ 25 MG TAB.ER.24H PO SCH (08:55)
[2021-09-22] MEDS: OLANZapine 5 MG TAB.RAPDIS PO SCH (22:34)
[2021-09-23 08:46] LABS: Basophils # 0.1 K/mcL (0.0-0.2); Basophils % 1.4 %; Eosinophils # 0.1 K/mcL (0.0-0.6); Hematocrit 37.3 % (37.5-50.1); Hemoglobin 12.5 g/dL (12.9-16.9); Immature Granulocytes % 0.5 % (0-4); Lymphocytes # 1.2 K/mcL (0.6-4.6); Lymphocytes % 21.9 %; Mean Corpuscular HGB Conc 33.5 g/dL (31.6-35.5); Mean Corpuscular Hemoglobin 31.5 pg (28.0-33.3); Mean Platelet Volume 10.8 fL (9.4-12.4); Monocytes # 1.4 K/mcL (0.0-1.3); Monocytes % 25.3 %; Neutrophils # 2.7 K/mcL (1.6-8.9); Platelet Count 263 K/mcL (140-400); Red Blood Count 3.97 M/mcL (4.19-5.50); Red Cell Distribution Width 13.8 % (11.5-14.5); Segmented Neutrophils % 48.9 %; White Blood Count 5.6 K/mcL (4.3-11.1)
[2021-09-23] MEDS: NIFEdipine XL (24 HR) 60 MG TAB.ER.24 PO SCH (09:02)
[2021-09-23] MEDS: Metoprolol XL (24 HR) Succ 25 MG TAB.ER.24H PO SCH (09:02)
[2021-09-23] MEDS: hydrALAZINE 25 MG TABLET PO SCH (09:02)
[2021-09-23 09:04] LABS: Platelet Estimate Normal (Normal)
[2021-09-23 09:11] LABS: BUN/Creatinine Ratio 17 (6-26); Blood Urea Nitrogen 20 mg/dL (8-23); Calcium 9.1 mg/dL (8.6-10.3); Carbon Dioxide 27 mEq/L (23-29); Chloride 108 mEq/L (98-107); Glucose 90 mg/dL (70-105); Magnesium 1.7 mg/dL (1.6-2.6); Osmolality,Calculated 294 (280-300); Potassium 3.7 mEq/L (3.5-5.1); Sodium 141 mEq/L (136-145); eGFR For African Americans > 60 (> 60); eGFR For Non-African Americans > 60 (> 60)
[2021-09-23] MEDS: OLANZapine 5 MG TAB.RAPDIS PO SCH (20:29)
[2021-09-24 06:49] LABS: Basophils # 0.1 K/mcL (0.0-0.2); Basophils % 1.2 %; Eosinophils % 0.1 %; Hemoglobin 12.3 g/dL (12.9-16.9); Immature Granulocytes % 0.5 % (0-4); Lymphocytes # 2.2 K/mcL (0.6-4.6); Mean Corpuscular HGB Conc 34.2 g/dL (31.6-35.5); Mean Corpuscular Hemoglobin 32.3 pg (28.0-33.3); Mean Corpuscular Volume 94.5 fL (83.0-100.0); Mean Platelet Volume 11.2 fL (9.4-12.4); Monocytes # 1.3 K/mcL (0.0-1.3); Monocytes % 17.3 %; Neutrophils # 3.8 K/mcL (1.6-8.9); Platelet Count 250 K/mcL (140-400); Red Blood Count 3.81 M/mcL (4.19-5.50); Segmented Neutrophils % 51.9 %; White Blood Count 7.4 K/mcL (4.3-11.1)
[2021-09-24 07:19] LABS: BUN/Creatinine Ratio 14 (6-26); Blood Urea Nitrogen 20 mg/dL (8-23); Calcium 8.9 mg/dL (8.6-10.3); Carbon Dioxide 24 mEq/L (23-29); Chloride 105 mEq/L (98-107); Glucose 93 mg/dL (70-105); Magnesium 1.6 mg/dL (1.6-2.6); Osmolality,Calculated 290 (280-300); Potassium 3.7 mEq/L (3.5-5.1); Sodium 139 mEq/L (136-145); eGFR For African Americans > 60 (> 60); eGFR For Non-African Americans 52 (> 60)
[2021-09-24] MEDS: hydrALAZINE 25 MG TABLET PO SCH (08:25)
[2021-09-24] MEDS: Metoprolol XL (24 HR) Succ 25 MG TAB.ER.24H PO SCH (08:25)
[2021-09-24] MEDS: NIFEdipine XL (24 HR) 60 MG TAB.ER.24 PO SCH (08:26)
[2021-09-24] MEDS: OLANZapine 5 MG TAB.RAPDIS PO SCH (20:27)
[2021-09-25 06:15] LABS: Basophils # 0.1 K/mcL (0.0-0.2); Basophils % 1.6 %; Eosinophils # 0.2 K/mcL (0.0-0.6); Eosinophils % 2.8 %; Hematocrit 40.3 % (37.5-50.1); Hemoglobin 13.1 g/dL (12.9-16.9); Immature Granulocytes % 0.3 % (0-4); Lymphocytes # 2.4 K/mcL (0.6-4.6); Lymphocytes % 40.9 %; Mean Corpuscular HGB Conc 32.5 g/dL (31.6-35.5); Mean Corpuscular Hemoglobin 31.3 pg (28.0-33.3); Mean Corpuscular Volume 96.2 fL (83.0-100.0); Mean Platelet Volume 11.3 fL (9.4-12.4); Monocytes # 0.8 K/mcL (0.0-1.3); Monocytes % 13.2 %; Neutrophils # 2.4 K/mcL (1.6-8.9); Platelet Count 226 K/mcL (140-400); Red Blood Count 4.19 M/mcL (4.19-5.50); Red Cell Distribution Width 14.1 % (11.5-14.5); Segmented Neutrophils % 41.2 %; White Blood Count 5.8 K/mcL (4.3-11.1)
[2021-09-25 06:46] LABS: BUN/Creatinine Ratio 21 (6-26); Blood Urea Nitrogen 27 mg/dL (8-23); Carbon Dioxide 26 mEq/L (23-29); Chloride 107 mEq/L (98-107); Glucose 82 mg/dL (70-105); Magnesium 1.8 mg/dL (1.6-2.6); Osmolality,Calculated 296 (280-300); Potassium 3.6 mEq/L (3.5-5.1); Sodium 141 mEq/L (136-145); eGFR For African Americans > 60 (> 60); eGFR For Non-African Americans 55 (> 60)
[2021-09-25] MEDS: hydrALAZINE 25 MG TABLET PO SCH (11:33)
[2021-09-25] MEDS: Metoprolol XL (24 HR) Succ 25 MG TAB.ER.24H PO SCH (11:33)
[2021-09-25] MEDS: NIFEdipine XL (24 HR) 60 MG TAB.ER.24 PO SCH (11:33)
[2021-09-25] MEDS: OLANZapine 5 MG TAB.RAPDIS PO SCH (21:30)
[2021-09-26] MEDS: NIFEdipine XL (24 HR) 60 MG TAB.ER.24 PO SCH (09:18)
[2021-09-26] MEDS: hydrALAZINE 25 MG TABLET PO SCH (09:19)
[2021-09-26] MEDS: Metoprolol XL (24 HR) Succ 25 MG TAB.ER.24H PO SCH (09:19)
[2021-09-26 10:48] LABS: Basophils # 0.1 K/mcL (0.0-0.2); Basophils % 1.1 %; Eosinophils # 0.3 K/mcL (0.0-0.6); Eosinophils % 5.6 %; Hematocrit 38.6 % (37.5-50.1); Immature Granulocytes % 0.4 % (0-4); Lymphocytes # 1.5 K/mcL (0.6-4.6); Lymphocytes % 29.5 %; Mean Corpuscular HGB Conc 33.7 g/dL (31.6-35.5); Mean Corpuscular Hemoglobin 31.4 pg (28.0-33.3); Mean Corpuscular Volume 93.2 fL (83.0-100.0); Mean Platelet Volume 10.6 fL (9.4-12.4); Monocytes # 0.6 K/mcL (0.0-1.3); Monocytes % 11.9 %; Neutrophils # 2.7 K/mcL (1.6-8.9); Platelet Count 242 K/mcL (140-400); Red Blood Count 4.14 M/mcL (4.19-5.50); Red Cell Distribution Width 13.9 % (11.5-14.5); Segmented Neutrophils % 51.5 %; White Blood Count 5.2 K/mcL (4.3-11.1)
[2021-09-26 12:03] LABS: BUN/Creatinine Ratio 22 (6-26); Blood Urea Nitrogen 24 mg/dL (8-23); Calcium 9.2 mg/dL (8.6-10.3); Carbon Dioxide 27 mEq/L (23-29); Chloride 108 mEq/L (98-107); Glucose 92 mg/dL (70-105); Magnesium 1.9 mg/dL (1.6-2.6); Osmolality,Calculated 296 (280-300); Potassium 3.7 mEq/L (3.5-5.1); Sodium 141 mEq/L (136-145); eGFR For African Americans > 60 (> 60); eGFR For Non-African Americans > 60 (> 60)
[2021-09-26] MEDS: OLANZapine 5 MG TAB.RAPDIS PO SCH (20:24)
[2021-09-27 01:30] LABS: Basophils # 0.1 K/mcL (0.0-0.2); Basophils % 0.9 %; Eosinophils # 0.4 K/mcL (0.0-0.6); Eosinophils % 6.5 %; Hematocrit 39.2 % (37.5-50.1); Immature Granulocytes % 0.3 % (0-4); Lymphocytes # 2.3 K/mcL (0.6-4.6); Lymphocytes % 38.9 %; Mean Corpuscular HGB Conc 33.2 g/dL (31.6-35.5); Mean Corpuscular Hemoglobin 31.6 pg (28.0-33.3); Mean Corpuscular Volume 95.4 fL (83.0-100.0); Mean Platelet Volume 10.7 fL (9.4-12.4); Monocytes # 0.6 K/mcL (0.0-1.3); Monocytes % 10.4 %; Neutrophils # 2.5 K/mcL (1.6-8.9); Platelet Count 249 K/mcL (140-400); Red Blood Count 4.11 M/mcL (4.19-5.50); Red Cell Distribution Width 13.9 % (11.5-14.5); White Blood Count 5.9 K/mcL (4.3-11.1)
[2021-09-27 01:49] LABS: BUN/Creatinine Ratio 20 (6-26); Blood Urea Nitrogen 21 mg/dL (8-23); Calcium 8.7 mg/dL (8.6-10.3); Carbon Dioxide 28 mEq/L (23-29); Chloride 108 mEq/L (98-107); Glucose 91 mg/dL (70-105); Magnesium 1.9 mg/dL (1.6-2.6); Osmolality,Calculated 299 (280-300); Potassium 3.5 mEq/L (3.5-5.1); Sodium 143 mEq/L (136-145); eGFR For African Americans > 60 (> 60); eGFR For Non-African Americans > 60 (> 60)
[2021-09-27] MEDS: NIFEdipine XL (24 HR) 60 MG TAB.ER.24 PO SCH (08:48)
[2021-09-27] MEDS: Metoprolol XL (24 HR) Succ 25 MG TAB.ER.24H PO SCH (08:48)
[2021-09-27] MEDS: hydrALAZINE 25 MG TABLET PO SCH (08:48)
[2021-09-27] MEDS ORDERED: Gadolinium Contrast Agent (WT Based) IV PRN (13:57)
[2021-09-27] MEDS: OLANZapine 5 MG TAB.RAPDIS PO SCH (20:33)
[2021-09-28 00:46] LABS: Basophils % 0.7 %; Eosinophils # 0.3 K/mcL (0.0-0.6); Eosinophils % 4.9 %; Hematocrit 40.9 % (37.5-50.1); Hemoglobin 13.8 g/dL (12.9-16.9); Immature Granulocytes % 0.5 % (0-4); Lymphocytes # 2.4 K/mcL (0.6-4.6); Lymphocytes % 42.2 %; Mean Corpuscular HGB Conc 33.7 g/dL (31.6-35.5); Mean Corpuscular Hemoglobin 31.9 pg (28.0-33.3); Mean Corpuscular Volume 94.7 fL (83.0-100.0); Mean Platelet Volume 10.8 fL (9.4-12.4); Monocytes # 0.6 K/mcL (0.0-1.3); Monocytes % 9.7 %; Neutrophils # 2.4 K/mcL (1.6-8.9); Platelet Count 244 K/mcL (140-400); Red Blood Count 4.32 M/mcL (4.19-5.50); Red Cell Distribution Width 13.7 % (11.5-14.5); White Blood Count 5.7 K/mcL (4.3-11.1)
[2021-09-28 01:02] LABS: BUN/Creatinine Ratio 18 (6-26); Blood Urea Nitrogen 17 mg/dL (8-23); Carbon Dioxide 26 mEq/L (23-29); Chloride 108 mEq/L (98-107); Glucose 102 mg/dL (70-105); Magnesium 1.7 mg/dL (1.6-2.6); Osmolality,Calculated 296 (280-300); Potassium 3.8 mEq/L (3.5-5.1); Sodium 142 mEq/L (136-145); eGFR For African Americans > 60 (> 60); eGFR For Non-African Americans > 60 (> 60)
[2021-09-28 02:13] LABS: Thyroid Stimulating Hormone 1.041 mcIU/mL (0.340-5.600)
[2021-09-28 03:02] LABS: Platelet Estimate Normal (Normal); Reactive Lymphocytes Present (Not Present)
[2021-09-28] MEDS: hydrALAZINE 25 MG TABLET PO SCH (09:19)
[2021-09-28] MEDS: NIFEdipine XL (24 HR) 60 MG TAB.ER.24 PO SCH (09:19)
[2021-09-28] MEDS: Cyanocobalamin (B-12) 1,000 MCG TABLET PO SCH (09:19)
[2021-09-28] MEDS: Metoprolol XL (24 HR) Succ 25 MG TAB.ER.24H PO SCH (09:19)
[2021-09-28] MEDS: Thiamine (B-1) 100 MG TABLET PO SCH (09:19)
[2021-09-28] MEDS: OLANZapine 5 MG TAB.RAPDIS PO SCH (21:03)
[2021-09-29] MEDS: Thiamine (B-1) 100 MG TABLET PO SCH (10:49)
[2021-09-29] MEDS: NIFEdipine XL (24 HR) 60 MG TAB.ER.24 PO SCH (10:49)
[2021-09-29] MEDS: hydrALAZINE 25 MG TABLET PO SCH (10:50)
[2021-09-29] MEDS: Metoprolol XL (24 HR) Succ 25 MG TAB.ER.24H PO SCH (10:50)
[2021-09-29] MEDS: Cyanocobalamin (B-12) 1,000 MCG TABLET PO SCH (10:50)
[2021-09-29] MEDS: OLANZapine 5 MG TAB.RAPDIS PO SCH (20:10)
[2021-09-30] MEDS: Cyanocobalamin (B-12) 1,000 MCG TABLET PO SCH (09:47)
[2021-09-30] MEDS: hydrALAZINE 25 MG TABLET PO SCH (09:47)
[2021-09-30] MEDS: Thiamine (B-1) 100 MG TABLET PO SCH (09:47)
[2021-09-30] MEDS: NIFEdipine XL (24 HR) 60 MG TAB.ER.24 PO SCH (09:48)
[2021-09-30] MEDS: Metoprolol XL (24 HR) Succ 25 MG TAB.ER.24H PO SCH (09:48)
[2021-09-30] MEDS: OLANZapine 5 MG TAB.RAPDIS PO SCH (20:33)
[2021-10-01] MEDS: Cyanocobalamin (B-12) 1,000 MCG TABLET PO SCH (07:26)
[2021-10-01] MEDS: hydrALAZINE 25 MG TABLET PO SCH (07:26)
[2021-10-01] MEDS: Thiamine (B-1) 100 MG TABLET PO SCH (07:26)
[2021-10-01] MEDS: Metoprolol XL (24 HR) Succ 25 MG TAB.ER.24H PO SCH (07:26)
[2021-10-01] MEDS: NIFEdipine XL (24 HR) 60 MG TAB.ER.24 PO SCH (07:26)
[2021-10-01] MEDS: OLANZapine 5 MG TAB.RAPDIS PO SCH (20:12)
[2021-10-02] MEDS: Metoprolol XL (24 HR) Succ 25 MG TAB.ER.24H PO SCH (09:12)
[2021-10-02] MEDS: NIFEdipine XL (24 HR) 60 MG TAB.ER.24 PO SCH (09:12)
[2021-10-02] MEDS: Cyanocobalamin (B-12) 1,000 MCG TABLET PO SCH (09:13)
[2021-10-02] MEDS: Thiamine (B-1) 100 MG TABLET PO SCH (09:13)
[2021-10-02] MEDS: hydrALAZINE 25 MG TABLET PO SCH (09:13)
[2021-10-02] MEDS: OLANZapine 5 MG TAB.RAPDIS PO SCH (20:21)
[2021-10-03 07:20] LABS: Arsenic <10.0 ug/L (<=12.0); Cadmium 1.4 ug/L (<=5.0); Mercury <2.5 ug/L (<=10.0)
[2021-10-03] MEDS: Cyanocobalamin (B-12) 1,000 MCG TABLET PO SCH (10:26)
[2021-10-03] MEDS: hydrALAZINE 25 MG TABLET PO SCH (10:26)
[2021-10-03] MEDS: Thiamine (B-1) 100 MG TABLET PO SCH (10:26)
[2021-10-03] MEDS: NIFEdipine XL (24 HR) 60 MG TAB.ER.24 PO SCH (10:27)
[2021-10-03] MEDS: Metoprolol XL (24 HR) Succ 25 MG TAB.ER.24H PO SCH (10:28)
[2021-10-03] MEDS: OLANZapine 5 MG TAB.RAPDIS PO SCH (23:00)
[2021-10-04] MEDS: NIFEdipine XL (24 HR) 60 MG TAB.ER.24 PO SCH (09:39)
[2021-10-04] MEDS: hydrALAZINE 25 MG TABLET PO SCH (09:39)
[2021-10-04] MEDS: Cyanocobalamin (B-12) 1,000 MCG TABLET PO SCH (09:39)
[2021-10-04] MEDS: Metoprolol XL (24 HR) Succ 25 MG TAB.ER.24H PO SCH (09:39)
[2021-10-04] MEDS: Thiamine (B-1) 100 MG TABLET PO SCH (09:39)
[2021-10-04] MEDS: OLANZapine 5 MG TAB.RAPDIS PO SCH (20:35)
[2021-10-05] MEDS: hydrALAZINE 25 MG TABLET PO SCH (07:24)
[2021-10-05] MEDS: Folic Acid 1 MG TABLET PO SCH (07:24)
[2021-10-05] MEDS: Metoprolol XL (24 HR) Succ 25 MG TAB.ER.24H PO SCH (07:24)
[2021-10-05] MEDS: NIFEdipine XL (24 HR) 60 MG TAB.ER.24 PO SCH (07:24)
[2021-10-05] MEDS: Cyanocobalamin (B-12) 1,000 MCG TABLET PO SCH (07:25)
[2021-10-05] MEDS: Thiamine (B-1) 100 MG TABLET PO SCH (07:25)
[2021-10-06 01:13] LABS: Basophils % 0.5 %; Eosinophils # 0.3 K/mcL (0.0-0.6); Eosinophils % 3.4 %; Hematocrit 39.3 % (37.5-50.1); Hemoglobin 13.2 g/dL (12.9-16.9); Immature Granulocytes % 0.5 % (0-4); Lymphocytes # 2.9 K/mcL (0.6-4.6); Mean Corpuscular HGB Conc 33.6 g/dL (31.6-35.5); Mean Corpuscular Hemoglobin 31.5 pg (28.0-33.3); Mean Corpuscular Volume 93.8 fL (83.0-100.0); Mean Platelet Volume 10.5 fL (9.4-12.4); Monocytes # 1.1 K/mcL (0.0-1.3); Monocytes % 12.9 %; Neutrophils # 4.1 K/mcL (1.6-8.9); Platelet Count 402 K/mcL (140-400); Red Blood Count 4.19 M/mcL (4.19-5.50); Red Cell Distribution Width 13.3 % (11.5-14.5); Segmented Neutrophils % 48.7 %; White Blood Count 8.5 K/mcL (4.3-11.1)
[2021-10-06 01:29] LABS: BUN/Creatinine Ratio 24 (6-26); Blood Urea Nitrogen 19 mg/dL (8-23); Calcium 9.3 mg/dL (8.6-10.3); Carbon Dioxide 23 mEq/L (23-29); Chloride 109 mEq/L (98-107); Glucose 89 mg/dL (70-105); Osmolality,Calculated 294 (280-300); Potassium 3.5 mEq/L (3.5-5.1); Sodium 141 mEq/L (136-145); eGFR For African Americans > 60 (> 60); eGFR For Non-African Americans > 60 (> 60)
[2021-10-06] MEDS: OLANZapine 5 MG TAB.RAPDIS PO SCH (06:03)
[2021-10-06] MEDS: Thiamine (B-1) 100 MG TABLET PO SCH (09:34)
[2021-10-06] MEDS: Metoprolol XL (24 HR) Succ 25 MG TAB.ER.24H PO SCH (09:34)
[2021-10-06] MEDS: Cyanocobalamin (B-12) 1,000 MCG TABLET PO SCH (09:34)
[2021-10-06] MEDS: hydrALAZINE 25 MG TABLET PO SCH (09:34)
[2021-10-06] MEDS: NIFEdipine XL (24 HR) 60 MG TAB.ER.24 PO SCH (09:34)
[2021-10-06] MEDS: Folic Acid 1 MG TABLET PO SCH (09:34)
[2021-10-07] MEDS: OLANZapine 5 MG TAB.RAPDIS PO SCH (00:13)
[2021-10-07] MEDS: hydrALAZINE 25 MG TABLET PO SCH (09:32)
[2021-10-07] MEDS: Thiamine (B-1) 100 MG TABLET PO SCH (09:32)
[2021-10-07] MEDS: Cyanocobalamin (B-12) 1,000 MCG TABLET PO SCH (09:32)
[2021-10-07] MEDS: Folic Acid 1 MG TABLET PO SCH (09:33)
[2021-10-07] MEDS: NIFEdipine XL (24 HR) 60 MG TAB.ER.24 PO SCH (09:33)
[2021-10-07] MEDS: Metoprolol XL (24 HR) Succ 25 MG TAB.ER.24H PO SCH (09:33)
[2021-10-08] MEDS: OLANZapine 5 MG TAB.RAPDIS PO SCH ×2 (00:20→20:12)
[2021-10-08] MEDS: NIFEdipine XL (24 HR) 60 MG TAB.ER.24 PO SCH (08:11)
[2021-10-08] MEDS: Folic Acid 1 MG TABLET PO SCH (08:11)
[2021-10-08] MEDS: Cyanocobalamin (B-12) 1,000 MCG TABLET PO SCH (08:11)
[2021-10-08] MEDS: hydrALAZINE 25 MG TABLET PO SCH (08:11)
[2021-10-08] MEDS: Thiamine (B-1) 100 MG TABLET PO SCH (08:11)
[2021-10-08] MEDS: Metoprolol XL (24 HR) Succ 25 MG TAB.ER.24H PO SCH (08:11)
[2021-10-08 11:18] LABS: Influenza A PCR Negative (Negative); Influenza B PCR Negative (Negative); Resp. Syncytial Virus PCR Negative (Negative)
[2021-10-08 11:22] LABS: SARS-CoV-2 by PCR (In House) Positive (Negative)
[2021-10-09] MEDS: Thiamine (B-1) 100 MG TABLET PO SCH (10:29)
[2021-10-09] MEDS: Folic Acid 1 MG TABLET PO SCH (10:30)
[2021-10-09] MEDS: hydrALAZINE 25 MG TABLET PO SCH (10:30)
[2021-10-09] MEDS: Metoprolol XL (24 HR) Succ 25 MG TAB.ER.24H PO SCH (10:30)
[2021-10-09] MEDS: NIFEdipine XL (24 HR) 60 MG TAB.ER.24 PO SCH (10:30)
[2021-10-09] MEDS: Cyanocobalamin (B-12) 1,000 MCG TABLET PO SCH (10:30)
[2021-10-09] MEDS: OLANZapine 5 MG TAB.RAPDIS PO SCH (21:08)
[2021-10-10] MEDS: Folic Acid 1 MG TABLET PO SCH (10:06)
[2021-10-10] MEDS: Cyanocobalamin (B-12) 1,000 MCG TABLET PO SCH (10:06)
[2021-10-10] MEDS: Thiamine (B-1) 100 MG TABLET PO SCH (10:06)
[2021-10-10] MEDS: Metoprolol XL (24 HR) Succ 25 MG TAB.ER.24H PO SCH (10:06)
[2021-10-10] MEDS: hydrALAZINE 25 MG TABLET PO SCH (10:07)
[2021-10-10] MEDS: NIFEdipine XL (24 HR) 60 MG TAB.ER.24 PO SCH (10:07)
[2021-10-10] MEDS: OLANZapine 5 MG TAB.RAPDIS PO SCH (20:29)
[2021-10-11] MEDS: Thiamine (B-1) 100 MG TABLET PO SCH (08:13)
[2021-10-11] MEDS: Cyanocobalamin (B-12) 1,000 MCG TABLET PO SCH (08:13)
[2021-10-11] MEDS: Folic Acid 1 MG TABLET PO SCH (08:13)
[2021-10-11] MEDS: NIFEdipine XL (24 HR) 60 MG TAB.ER.24 PO SCH (08:13)
[2021-10-11] MEDS: Metoprolol XL (24 HR) Succ 25 MG TAB.ER.24H PO SCH (08:14)
[2021-10-11] MEDS: OLANZapine 5 MG TAB.RAPDIS PO SCH (22:43)
[2021-10-12] MEDS: Cyanocobalamin (B-12) 1,000 MCG TABLET PO SCH (07:48)
[2021-10-12] MEDS: Thiamine (B-1) 100 MG TABLET PO SCH (07:48)
[2021-10-12] MEDS: Folic Acid 1 MG TABLET PO SCH (07:49)
[2021-10-12] MEDS: Metoprolol XL (24 HR) Succ 25 MG TAB.ER.24H PO SCH (07:50)
[2021-10-12] MEDS: NIFEdipine XL (24 HR) 60 MG TAB.ER.24 PO SCH (07:51)
[2021-10-12] MEDS: OLANZapine 5 MG TAB.RAPDIS PO SCH (21:41)
[2021-10-13] MEDS: Thiamine (B-1) 100 MG TABLET PO SCH (10:02)
[2021-10-13] MEDS: Cyanocobalamin (B-12) 1,000 MCG TABLET PO SCH (10:02)
[2021-10-13] MEDS: Folic Acid 1 MG TABLET PO SCH (10:02)
[2021-10-13] MEDS: Metoprolol XL (24 HR) Succ 25 MG TAB.ER.24H PO SCH (10:03)
[2021-10-13] MEDS: NIFEdipine XL (24 HR) 60 MG TAB.ER.24 PO SCH (10:03)
[2021-10-13] MEDS: OLANZapine 5 MG TAB.RAPDIS PO SCH (21:00)
[2021-10-14] MEDS: OLANZapine 5 MG TAB.RAPDIS PO SCH ×2 (07:25→21:14)
[2021-10-14] MEDS: Cyanocobalamin (B-12) 1,000 MCG TABLET PO SCH (09:00)
[2021-10-14] MEDS: Metoprolol XL (24 HR) Succ 25 MG TAB.ER.24H PO SCH (09:00)
[2021-10-14] MEDS: NIFEdipine XL (24 HR) 60 MG TAB.ER.24 PO SCH (09:00)
[2021-10-14] MEDS: Folic Acid 1 MG TABLET PO SCH (09:01)
[2021-10-14] MEDS: Thiamine (B-1) 100 MG TABLET PO SCH (09:01)
[2021-10-15] MEDS: *HR* Enoxaparin 40 MG/0.4 ML SYRINGE SQ SCH ×2 (06:02→06:15)
[2021-10-15] MEDS: Thiamine (B-1) 100 MG TABLET PO SCH (09:05)
[2021-10-15] MEDS: NIFEdipine XL (24 HR) 60 MG TAB.ER.24 PO SCH (09:05)
[2021-10-15] MEDS: Cyanocobalamin (B-12) 1,000 MCG TABLET PO SCH (09:05)
[2021-10-15] MEDS: Folic Acid 1 MG TABLET PO SCH (09:05)
[2021-10-15] MEDS: Metoprolol XL (24 HR) Succ 25 MG TAB.ER.24H PO SCH (09:05)
[2021-10-15] MEDS: OLANZapine 5 MG TAB.RAPDIS PO SCH (21:26)
[2021-10-16] MEDS: *HR* Enoxaparin 40 MG/0.4 ML SYRINGE SQ SCH (05:49)
[2021-10-16] MEDS: Thiamine (B-1) 100 MG TABLET PO SCH (09:13)
[2021-10-16] MEDS: NIFEdipine XL (24 HR) 60 MG TAB.ER.24 PO SCH (09:13)
[2021-10-16] MEDS: Metoprolol XL (24 HR) Succ 25 MG TAB.ER.24H PO SCH (09:13)
[2021-10-16] MEDS: Cyanocobalamin (B-12) 1,000 MCG TABLET PO SCH (09:13)
[2021-10-16] MEDS: Folic Acid 1 MG TABLET PO SCH (09:13)
[2021-10-16] MEDS: OLANZapine 5 MG TAB.RAPDIS PO SCH (21:37)
[2021-10-17] MEDS: *HR* Enoxaparin 40 MG/0.4 ML SYRINGE SQ SCH (05:45)
[2021-10-17] MEDS: Folic Acid 1 MG TABLET PO SCH (09:30)
[2021-10-17] MEDS: NIFEdipine XL (24 HR) 60 MG TAB.ER.24 PO SCH (09:30)
[2021-10-17] MEDS: Thiamine (B-1) 100 MG TABLET PO SCH (09:30)
[2021-10-17] MEDS: Cyanocobalamin (B-12) 1,000 MCG TABLET PO SCH (09:31)
[2021-10-17] MEDS: Metoprolol XL (24 HR) Succ 25 MG TAB.ER.24H PO SCH (09:31)
[2021-10-17] MEDS: OLANZapine 5 MG TAB.RAPDIS PO SCH (22:08)
[2021-10-18] MEDS: *HR* Enoxaparin 40 MG/0.4 ML SYRINGE SQ SCH (05:15)
[2021-10-18] MEDS: NIFEdipine XL (24 HR) 60 MG TAB.ER.24 PO SCH (08:07)
[2021-10-18] MEDS: Folic Acid 1 MG TABLET PO SCH (08:07)
[2021-10-18] MEDS: Thiamine (B-1) 100 MG TABLET PO SCH (08:08)
[2021-10-18] MEDS: Metoprolol XL (24 HR) Succ 25 MG TAB.ER.24H PO SCH (08:08)
[2021-10-18] MEDS: Cyanocobalamin (B-12) 1,000 MCG TABLET PO SCH (08:08)
[2021-10-18] MEDS: OLANZapine 5 MG TAB.RAPDIS PO SCH (21:39)
[2021-10-19] MEDS: *HR* Enoxaparin 40 MG/0.4 ML SYRINGE SQ SCH (05:31)
[2021-10-19] MEDS: Folic Acid 1 MG TABLET PO SCH (08:09)
[2021-10-19] MEDS: Thiamine (B-1) 100 MG TABLET PO SCH (08:09)
[2021-10-19] MEDS: Cyanocobalamin (B-12) 1,000 MCG TABLET PO SCH (08:09)
[2021-10-19] MEDS: NIFEdipine XL (24 HR) 60 MG TAB.ER.24 PO SCH (08:09)
[2021-10-19] MEDS: Metoprolol XL (24 HR) Succ 25 MG TAB.ER.24H PO SCH (08:09)
[2021-10-19 10:59] VITALS: PULSE 62; TEMP 97.3; O2SAT 94
[2021-10-19 11:41] VITALS: BP 154/90
== END 2021-10-19 15:18 | DRG 482 ==
LOC: 3ANU 14:15 → SAMDAY 14:15 → 3ANU 19:17 → SUATTDRO 09-18 15:47
PROVIDERS: ADMIT Urology; ATTEND Student in an Organized Health Care Education/Training Program
PROC: UROTURP (2021-09-12 17:30)